=== PATIENT | female | born 1990 | race American Indian/Alaskan Native ===

== ENCOUNTER 2018-02-18 20:02 | Emergency (ER) | payer SELFPAY ==
[2018-02-18] MEDS ORDERED: NACL 0.9% 500 ML 500 ML IV ONE (21:11)
[2018-02-18 21:30] LABS: Mean Corpuscular HGB Conc 30 % (30-34); Platelet Count 240 K/mm3 (140-440)
[2018-02-18 21:42] LABS: INR 1.08 (0.87-1.13)
[2018-02-18] MEDS ORDERED: SUBLIMAZE IV ONE (21:43)
[2018-02-18] MEDS ORDERED: TORADOL IV ONE (21:43)
[2018-02-18] MEDS ORDERED: NACL 0.9% 1000 ML 1,000 ML IV ONE (21:43)
[2018-02-18] MEDS ORDERED: LEVAQUIN PO ONE (21:43)
[2018-02-18] MEDS ORDERED: ZOFRAN IV ONE (21:43)
[2018-02-18] MEDS ORDERED: REGLAN IV ONE (21:44)
[2018-02-18] MEDS ORDERED: TYLENOL PO ONE (21:44)
[2018-02-18 21:49] LABS: Albumin 4.1 g/dL (3.9-5); Calcium 9.1 mg/dL (8.4-10.2)
[2018-02-18 21:52] LABS: Hematocrit 34.1 % (30.3-42.9); Hemoglobin 10.3 gm/dl (10.1-14.3); Mean Corpuscular Hemoglobin 20 pg (28-32); Mean Corpuscular Volume 66 fl (79-97); Red Cell Distribution Width 21.3 % (13.2-15.2)
[2018-02-18 22:08] LABS: Bacteria,Urine 2+ /HPF (Negative); Bilirubin,Urine NEG (Negative); Blood,Urine NEG (Negative); Color,Urine Yellow (Yellow); Mucus,Urine FEW /HPF
[2018-02-18 22:32] LABS: Band Neutrophils # (Manual) 0.2 K/mm3; Eosinophils % (Manual) 0 % (0.0-4.3); Total Cells Counted 100
[2018-02-18 22:33] LABS: Anisocytosis 1+; Hypochromasia 2+; Poikilocytosis Few
--- NOTE | 2018-02-18 23:00 | Cat Scan Report ---
FINAL REPORT EXAM: CT ABDOMEN PELVIS WO/W CON HISTORY: right flank pain, fever COMPARISON: None available. TECHNIQUE: Contiguous axial images were obtained. Pre and postcontrast images obtained. Administration of IV contrast given per institution protocol. Images submitted for interpretation. Additional sagittal and coronal reformatted images were obtained. FINDINGS: Visualized mammoplasties are grossly intact. Lung bases are clear. No calcified gallstones or biliary dilatation. Mild focal fatty infiltration of the liver along the falciform ligament. Otherwise, there is homogeneous enhancement of the liver, spleen, pancreas and adrenal glands. Mild enlargement spleen measuring 13 centimeters. Patchy enhancement of right kidney. There is mild dilatation wall thickening the right renal pelvis. No radiopaque calculus identified along the course of the right ureter or urinary bladder. There is a 2 millimeter nonobstructive right renal calculus. Right-sided perinephric fat stranding concerning for pyelonephritis. No solid renal lesion or hydronephrosis on the left. Aorta and IVC are normal in caliber. The appendix is gas-filled and normal in caliber. Large and small bowel loops normal in caliber. Urinary bladder, uterus, ovaries are grossly unremarkable. Small amount of free fluid in the pelvis within physiologic limits. Lumbar vertebral body heights are preserved. Bony pelvis is grossly intact. IMPRESSION: Findings concerning for right-sided pyelonephritis. There is patchy enhancement the anterior margin the mid right kidney. Mild wall thickening hyperemia of the right renal pelvis. 2 millimeter nonobstructive right renal calculus. Small amount of free fluid in the pelvis within physiologic limits.
--- NOTE | 2018-02-18 23:07 | Emergency Department Report ---
HPI - General Chief Complaint: Abdominal Pain Time Seen by Provider: 02/18/18 21:21 - HPI HPI: Room 17 The patient is a 27-year-old female presenting with a chief complaint of fever and back pain nausea and vomiting. The patient states for 2 days she has had a subjective fever and pain across her entire back. Patient also complains of pain on the right side of her abdomen upper and lower quadrants. Patient states she's had nausea vomiting and diarrhea in addition to dysuria. The patient gives her pain score of 10/10 Location: [See above] Duration: 2 days Quality: Pain Severity: 10/10 Modifying factors: [see above] Context: [see above] Mode of transportation: [not driving] ED Past Medical Hx - Past Medical History Hx Kidney Stones: Yes Additional medical history: Kidney infection, Anemia - Surgical History Additional Surgical History: X2, Breast Augmentation - Family History Family history: no significant - Social History Smoking Status: Current Every Day Smoker (1/2 pack per day) Substance Use Type: Cocaine, Marijuana, Other (Percocet) - Medications Home Medications: Home Medications Medication Instructions Recorded Confirmed Last Taken Type Ibuprofen [Motrin 800 MG tab] 800 mg PO Q8HR PRN #20 tablet 02/18/18 Unknown Rx Promethazine [Phenergan TAB] 25 mg PO Q6HR PRN #20 tab 02/18/18 Unknown Rx Promethazine [Phenergan] 25 mg ND Q6HR PRN #5 supp.rect 02/18/18 Unknown Rx levoFLOXacin [Levaquin] 750 mg PO QDAY #10 tablet 02/18/18 Unknown Rx oxyCODONE /ACETAMINOPHEN [Percocet 1 - 2 tab PO Q6HR PRN #14 tablet 02/18/18 Unknown Rx 5/325] ED Review of Systems ROS: Stated complaint: DIFFICULT BREATHING Other details as noted in HPI Constitutional: fever Eyes: denies: eye pain ENT: denies: throat pain Respiratory: no symptoms reported Cardiovascular: denies: chest pain Endocrine: no symptoms reported Gastrointestinal: abdominal pain, nausea, vomiting Genitourinary: dysuria Musculoskeletal: back pain Neurological: denies: headache Physical Exam - Physical Exam Vital Signs: Vital Signs 02/18/18 02/18/18 21:00 21:50 Temperature 102.4 F H 102.8 F H Pulse Rate 110 H 100 H Respiratory 16 24 Rate Blood Pressure 114/70 Blood Pressure 124/79 [Right] O2 Sat by Pulse 100 97 Oximetry Vital Signs 02/18/18 02/18/18 02/18/18 21:00 21:50 23:19 Temperature 102.4 F H 102.8 F H 99.8 F H Pulse Rate 110 H 100 H 94 H Respiratory 16 24 18 Rate Blood Pressure 114/70 Blood Pressure 124/79 120/63 [Right] O2 Sat by Pulse 100 97 97 Oximetry Physical Exam: GENERAL: The patient is well-developed well-nourished female lying on stretcher appeared to be in moderate discomfort. [] HEENT: Normocephalic. Atraumatic. Extraocular motions are intact. Patient has moist mucous membranes. NECK: Supple. Trachea midline CHEST/LUNGS: Clear to auscultation. There is no respiratory distress noted. HEART/CARDIOVASCULAR: Regular. There is no tachycardia. There is no gallop rub or murmur. ABDOMEN: Abdomen is soft, with tenderness to palpation in the right lower quadrant and right upper quadrant area and the left side of the abdomen is nontender to palpation. Patient has normal bowel sounds. There is no abdominal distention. SKIN: There is no rash. There is no edema. There is no diaphoresis. NEURO: The patient is awake, alert, and oriented. The patient is cooperative. The patient has normal speech MUSCULOSKELETAL: There is right CVA tenderness. There is no evidence of acute injury. ED Course Vital Signs 02/18/18 02/18/18 21:00 21:50 Temperature 102.4 F H 102.8 F H Pulse Rate 110 H 100 H Respiratory 16 24 Rate Blood Pressure 114/70 Blood Pressure 124/79 [Right] O2 Sat by Pulse 100 97 Oximetry ED Medical Decision Making - Lab Data Result diagrams: 02/18/18 21:14 02/18/18 21:14 Laboratory Tests 02/18/18 02/18/18 02/18/18 21:13 21:14 21:14 WBC 17.6 H RBC 5.20 H Hgb 10.3 Hct 34.1 MCV 66 L MCH 20 L MCHC 30 RDW 21.3 H Plt Count 240 Add Manual Diff Complete Total Counted 100 Seg Neuts % (Manual) 81.0 H Band Neutrophils % 1.0 Lymphocytes % (Manual) 9.0 L Reactive Lymphs % (Man) 0 Monocytes % (Manual) 8.0 H Eosinophils % (Manual) 0 Basophils % (Manual) 1.0 Metamyelocytes % 0 Myelocytes % 0 Promyelocytes % 0 Blast Cells % 0 Nucleated RBC % Not Reportable Seg Neutrophils # Man 14.3 H Band Neutrophils # 0.2 Lymphocytes # (Manual) 1.6 Abs React Lymphs (Man) 0.0 Monocytes # (Manual) 1.4 H Eosinophils # (Manual) 0.0 Basophils # (Manual) 0.2 H Metamyelocytes # 0.0 Myelocytes # 0.0 Promyelocytes # 0.0 Blast Cells # 0.0 WBC Morphology Not Reportable Hypersegmented Neuts Not Reportable Hyposegmented Neuts Not Reportable Hypogranular Neuts Not Reportable Smudge Cells Not Reportable Toxic Granulation Not Reportable Toxic Vacuolation Not Reportable Dohle Bodies Not Reportable Pelger-Huet Anomaly Not Reportable Nadia Rods Not Reportable Platelet Estimate Appears normal Clumped Platelets Not Reportable Plt Clumps, EDTA Not Reportable Large Platelets Not Reportable Giant Platelets Not Reportable Platelet Satelliting Not Reportable Plt Morphology Comment Not Reportable RBC Morphology Not Reportable Dimorphic RBCs Not Reportable Polychromasia Not Reportable Hypochromasia 2+ Poikilocytosis Few Anisocytosis 1+ Microcytosis 2+ Macrocytosis Not Reportable Spherocytes Not Reportable Pappenheimer Bodies Not Reportable Sickle Cells Not Reportable Target Cells Not Reportable Tear Drop Cells Not Reportable Ovalocytes Not Reportable Helmet Cells Not Reportable [place] Bodies Not Reportable [place] Rings Not Reportable [place] Cells Not Reportable Bite Cells Not Reportable Crenated Cell Not Reportable Elliptocytes Not Reportable Acanthocytes (Spur) Not Reportable Rouleaux Not Reportable Hemoglobin C Crystals Not Reportable Schistocytes Not Reportable Malaria parasites Not Reportable Mrav Bodies Not Reportable Hem Pathologist Commnt No PT 14.6 INR 1.08 VBG pH Sodium Potassium Chloride Carbon Dioxide Anion Gap BUN Creatinine Estimated GFR BUN/Creatinine Ratio Glucose Lactic Acid Calcium Total Bilirubin AST ALT Alkaline Phosphatase Total Protein Albumin Albumin/Globulin Ratio HCG, Qual Urine Color Yellow Urine Turbidity Slightly-cloudy Urine pH 7.0 Ur Specific Swain 1.016 Urine Protein 100 mg/dl Urine Glucose (UA) Neg Urine Ketones Neg Urine Blood Neg Urine Nitrite Neg Urine Bilirubin Neg Urine Urobilinogen 4.0 Ur Leukocyte Esterase Lg Urine WBC (Auto) 137.0 H Urine RBC (Auto) 8.0 U Epithel Cells (Auto) 5.0 Urine Bacteria (Auto) 2+ Ur Transition Epith Cell 2 Urine Mucus Few 02/18/18 02/18/18 02/18/18 21:14 21:14 21:14 WBC RBC Hgb Hct MCV MCH MCHC RDW Plt Count Add Manual Diff Total Counted Seg Neuts % (Manual) Band Neutrophils % Lymphocytes % (Manual) Reactive Lymphs % (Man) Monocytes % (Manual) Eosinophils % (Manual) Basophils % (Manual) Metamyelocytes % Myelocytes % Promyelocytes % Blast Cells % Nucleated RBC % Seg Neutrophils # Man Band Neutrophils # Lymphocytes # (Manual) Abs React Lymphs (Man) Monocytes # (Manual) Eosinophils # (Manual) Basophils # (Manual) Metamyelocytes # Myelocytes # Promyelocytes # Blast Cells # WBC Morphology Hypersegmented Neuts Hyposegmented Neuts Hypogranular Neuts Smudge Cells Toxic Granulation Toxic Vacuolation Dohle Bodies Pelger-Huet Anomaly Nadia Rods Platelet Estimate Clumped Platelets Plt Clumps, EDTA Large Platelets Giant Platelets Platelet Satelliting Plt Morphology Comment RBC Morphology Dimorphic RBCs Polychromasia Hypochromasia Poikilocytosis Anisocytosis Microcytosis Macrocytosis Spherocytes Pappenheimer Bodies Sickle Cells Target Cells Tear Drop Cells Ovalocytes Helmet Cells [place] Bodies [place] Rings [place] Cells Bite Cells Crenated Cell Elliptocytes Acanthocytes (Spur) Rouleaux Hemoglobin C Crystals Schistocytes Malaria parasites Marv Bodies Hem Pathologist Commnt PT INR VBG pH Sodium 135 L Potassium 3.6 Chloride 96.8 L Carbon Dioxide 22 Anion Gap 20 BUN 8 Creatinine 1.1 Estimated GFR 59 BUN/Creatinine Ratio 7 Glucose 124 H Lactic Acid 2.10 H* Calcium 9.1 Total Bilirubin 0.60 AST 21 ALT 12 Alkaline Phosphatase 57 Total Protein 8.3 H Albumin 4.1 Albumin/Globulin Ratio 1.0 HCG, Qual Negative Urine Color Urine Turbidity Urine pH Ur Specific Swain Urine Protein Urine Glucose (UA) Urine Ketones Urine Blood Urine Nitrite Urine Bilirubin Urine Urobilinogen Ur Leukocyte Esterase Urine WBC (Auto) Urine RBC (Auto) U Epithel Cells (Auto) Urine Bacteria (Auto) Ur Transition Epith Cell Urine Mucus 02/18/18 02/18/18 21:14 22:06 WBC RBC Hgb Hct MCV MCH MCHC RDW Plt Count Add Manual Diff Total Counted Seg Neuts % (Manual) Band Neutrophils % Lymphocytes % (Manual) Reactive Lymphs % (Man) Monocytes % (Manual) Eosinophils % (Manual) Basophils % (Manual) Metamyelocytes % Myelocytes % Promyelocytes % Blast Cells % Nucleated RBC % Seg Neutrophils # Man Band Neutrophils # Lymphocytes # (Manual) Abs React Lymphs (Man) Monocytes # (Manual) Eosinophils # (Manual) Basophils # (Manual) Metamyelocytes # Myelocytes # Promyelocytes # Blast Cells # WBC Morphology Hypersegmented Neuts Hyposegmented Neuts Hypogranular Neuts Smudge Cells Toxic Granulation Toxic Vacuolation Dohle Bodies Pelger-Huet Anomaly Nadia Rods Platelet Estimate Clumped Platelets Plt Clumps, EDTA Large Platelets Giant Platelets Platelet Satelliting Plt Morphology Comment RBC Morphology Dimorphic RBCs Polychromasia Hypochromasia Poikilocytosis Anisocytosis Microcytosis Macrocytosis Spherocytes Pappenheimer Bodies Sickle Cells Target Cells Tear Drop Cells Ovalocytes Helmet Cells [place] Bodies [place] Rings [place] Cells Bite Cells Crenated Cell Elliptocytes Acanthocytes (Spur) Rouleaux Hemoglobin C Crystals Schistocytes Malaria parasites Marv Bodies Hem Pathologist Commnt PT INR VBG pH 7.411 Sodium Potassium Chloride Carbon Dioxide Anion Gap BUN Creatinine Estimated GFR BUN/Creatinine Ratio Glucose Lactic Acid 1.50 Calcium Total Bilirubin AST ALT Alkaline Phosphatase Total Protein Albumin Albumin/Globulin Ratio HCG, Qual Urine Color Urine Turbidity Urine pH Ur Specific Swain Urine Protein Urine Glucose (UA) Urine Ketones Urine Blood Urine Nitrite Urine Bilirubin Urine Urobilinogen Ur Leukocyte Esterase Urine WBC (Auto) Urine RBC (Auto) U Epithel Cells (Auto) Urine Bacteria (Auto) Ur Transition Epith Cell Urine Mucus - EKG Data -: EKG Interpreted by Me EKG shows normal: sinus rhythm Rate: normal - EKG Data When compared to previous EKG there are: previous EKG unavailable Interpretation: normal EKG - Radiology Data Radiology results: report reviewed (CT abdomen and pelvis), image reviewed (CT abdomen pelvis) [facility] [address] [place] [address] Cat Scan Report Signed Patient: ADOLFO LING MR#: [id number] : 1990 Acct:[id number] Age/Sex: 27 / F ADM Date: 02/18/18 Loc: ED Attending Dr: Ordering Physician: DENIS HOLLINGSWORTH MD Date of Service: 02/18/18 Procedure(s): CT abdomen pelvis wo/w con Accession Number(s): [id number] cc: DENIS HOLLINGSWORTH MD FINAL REPORT EXAM: CT ABDOMEN PELVIS WO/W CON HISTORY: right flank pain, fever COMPARISON: None available. TECHNIQUE: Contiguous axial images were obtained. Pre and postcontrast images obtained. Administration of IV contrast given per institution protocol. Images submitted for interpretation. Additional sagittal and coronal reformatted images were obtained. FINDINGS: Visualized mammoplasties are grossly intact. Lung bases are clear. No calcified gallstones or biliary dilatation. Mild focal fatty infiltration of the liver along the falciform ligament. Otherwise, there is homogeneous enhancement of the liver, spleen, pancreas and adrenal glands. Mild enlargement spleen measuring 13 centimeters. Patchy enhancement of right kidney. There is mild dilatation wall thickening the right renal pelvis. No radiopaque calculus identified along the course of the right ureter or urinary bladder. There is a 2 millimeter nonobstructive right renal calculus. Right-sided perinephric fat stranding concerning for pyelonephritis. No solid renal lesion or hydronephrosis on the left. Aorta and IVC are normal in caliber. The appendix is gas-filled and normal in caliber. Large and small bowel loops normal in caliber. Urinary bladder, uterus, ovaries are grossly unremarkable. Small amount of free fluid in the pelvis within physiologic limits. Lumbar vertebral body heights are preserved. Bony pelvis is grossly intact. IMPRESSION: Findings concerning for right-sided pyelonephritis. There is patchy enhancement the anterior margin the mid right kidney. Mild wall thickening hyperemia of the right renal pelvis. 2 millimeter nonobstructive right renal calculus. Small amount of free fluid in the pelvis within physiologic limits. Transcribed By: LMA Dictated By: MARISOL VAUGHAN MD Electronically Authenticated By: MARISOL VAUGHAN MD Signed Date/Time : 02/18/182258 DD/ 58 TD/TT: 02/18/182258 - Differential Diagnosis pyelonephritis, renal colic, appendicitis Critical care attestation.: If time is entered above; I have spent that time in minutes in the direct care of this critically ill patient, excluding procedure time. ED Disposition Clinical Impression: Acute abdominal pain, Pyelonephritis, Dysuria, Fever, Nausea vomiting and diarrhea Disposition: TO HOME OR SELFCARE Is pt being admited?: No Does the pt Need Aspirin: No Condition: Stable Instructions: Abdominal Pain (ED) Additional Instructions: Return to the emergency department immediately should you develop worsening symptoms, fever, inability to tolerate food or liquid or any other concerns. Prescriptions: Ibuprofen [Motrin 800 MG tab] 800 mg PO Q8HR PRN #20 tablet PRN Reason: Pain, Moderate (4-6) levoFLOXacin [Levaquin] 750 mg PO QDAY #10 tablet oxyCODONE /ACETAMINOPHEN [Percocet 5/325] 1 - 2 tab PO Q6HR PRN #14 tablet PRN Reason: Pain Promethazine [Phenergan TAB] 25 mg PO Q6HR PRN #20 tab PRN Reason: Nausea Promethazine [Phenergan] 25 mg ND Q6HR PRN #5 supp.rect PRN Reason: Vomiting Referrals: MARJAN BOURGEOIS MD [Staff Physician] - 3-5 Days (Dr. Bourgeois is a primary physician. Please follow up with him to be established as a patient) SHIVA DEAN MD [Staff Physician] - 3-5 Days (Dr. Dean is a urologist. Please follow up with him for further evaluation of urinary kidney infection) Time of Disposition: 23:30
[2018-02-18 23:20] VITALS: BP 120/63
== END 2018-02-19 00:05 | disposition home or self-care (01) ==
LOC: ED 20:02
DX: N10 Acute pyelonephritis (principal); F17.200 Nicotine dependence, unspecified, uncomplicated; F12.10 Cannabis abuse, uncomplicated; F14.10 Cocaine abuse, uncomplicated; Z87.442 Personal history of urinary calculi; Z88.0 Allergy status to penicillin; Z88.6 Allergy status to analgesic agent
CPT/HCPCS: 36415; 74178; 80053; 81001; 82140; 82805; 84703; 85007; 85025; 85610; 87040; 87086; 93005; 93010; 96361; 96374; 96375; 99284; J1885; J2765; J3010; J7030; J7040; Q9967